=== PATIENT | male | born 1960 | race Asian ===

== ENCOUNTER 2017-03-05 08:54 | Outpatient (CLI) | payer BC ==
[~2017-03-05] VITALS: Ht 160.7 cm; Wt 58.6 kg
[2017-03-05 09:02] VITALS: BP 133/72; PULSE 96; RESP 18; Ht 160.7 cm; Wt 58.6 kg
[2017-03-05] MEDS ORDERED: MTF1000T PO (09:19)
[2017-03-05] MEDS ORDERED: ASPI-664 PO (09:19)
[2017-03-05] MEDS ORDERED: CLOP75TA27 PO (09:19)
[2017-03-05] MEDS ORDERED: AMLO5TAB4 PO (09:19)
[2017-03-05] MEDS ORDERED: LOSA50TA6 PO (09:19)
[2017-03-05] MEDS ORDERED: SITA100T8 PO (09:19)
[2017-03-05] MEDS ORDERED: ATOR40TA68 PO (09:19)
--- NOTE | 2017-03-05 09:46 | PN ---
Date/Time of Note Date/Time of Note DATE: 03/05/17 TIME: 09:37 Assessment/Plan Assessment/Plan Assessment/Plan [facility] Progress Note Date of Service: 03/05/2017 Today's Impression & Plan: Overall stable and doing well. No obvious post operative complications or wound problems. Discussed with patient and his daughter and answered all questions. Patient and family appeared to understand and agreed with plans. With above assessment, I've recommended the followin. F/u with Dr. Maloney 2. F/u with us leonardo Thank you again for allowing us to participate in the care of this very pleasant gentleman and his wonderful family. If there are any questions, please feel free to call me at area code [phone]. Nature presenting problem: High-risk Complexity decision making: Moderate complexity Please note: Spelling or grammatical errors in this note are likely due to EHR/ dictation systems and are not reflective of patient care quality. Occasional wrong-word or sound-alike substitutions may have occurred due to the inherent limitations of voice recognition software. Please read the chart carefully and recognize, using context, where the substitutions have occurred. The chart may also contain mistakes due to difficulties with voice recognition software. Also please note that the dictation timestamp of this note does not necessarily reflected time of the visit for this service. Updated clinical summary: A very pleasant 56-year-old gentleman with a few comorbidities, admitted through the emergency department at [facility] on 2016 with a clinical picture consistent with biliary colic and perhaps early acute cholecystitis. Comorbidities: 1. Severe acute on chronic cholecystitis. S/p a difficult but uncomplicated laparoscopic cholecystectomy with lysis of adhesions at [facility] 02/07/17 2. CVA; first attack in 2012, and second attack about 6 months ago with residual emotional lability, voice changes and right-sided weakness 3. Diabetes mellitus 4. History of ESBL Escherichia coli infection 5. Hyperlipidemia 6. Hypertension 7. Possible hepatic steatosis (CT scan abdomen and pelvis [facility] 02/05/2017); intraoperatively, the liver appeared somewhat normal and not significantly steatotic Subjective: No major events or complaints since d/c. No major pain complaints and reportedly under control with medications. Minor discomfort at upper midline incision. No N/V, SOB or CP. + bowel activity Objective: Vitals: reviewed; please also see EHR Physical Exam: Lungs: breathing comfortably without tachypnea; no audible wheezes, rales or rhonchi on gross exam Abd: Soft, non-tender, and non-distended; no peritoneal signs or guarding; incisions c/d/i w/o obvious e/e/d/h Skin: Appears pink and feels warm to touch. Neuro: Awake, alert and follows commands appropriately Exam/Review of Systems Vital Signs Vitals Vital Signs Date Time Temp Pulse Resp B/P Pulse Ox O2 Delivery O2 Flow Rate FiO2 03/05/17 09:02 98.2 96 18 133/72 99 Room Air ALLEN OCHOA M.D. Mar 05, 2017 09:46
== END 2017-03-05 15:51 | disposition home or self-care (01) ==
LOC: HPC 08:54
PROVIDERS: ATTEND Transplant Surgery
DX: K80.12 Calculus of gallbladder with acute and chronic cholecystitis without obstruction (principal); I10 Essential (primary) hypertension; E11.9 Type 2 diabetes mellitus without complications; E78.5 Hyperlipidemia, unspecified; Z86.73 Personal history of transient ischemic attack (TIA), and cerebral infarction without residual deficits
CPT/HCPCS: G0463